=== PATIENT | female | born 2005 | race Hispanic/Latino ===

== ENCOUNTER 2025-03-04 22:43 | Emergency (ER) | payer SELFPAY ==
[~2025-03-04] VITALS: Ht 157.5 cm; Wt 51.7 kg
--- NOTE | 2025-03-04 22:58 | ERN ---
General Chief Complaint: Abdominal Pain Stated Complaint: C/O ABD PAIN WITH DIARRHEA Time Seen by MD: 22:49 History of Present Illness Initial Comments 19-year-old female history of anemia here for evaluation of abdominal pain and diarrhea. Patient states that she started having symptoms earlier today with a one episode of nonbilious nonbloody diarrhea. No vomiting. No fever no cough no shortness a breath no urinary symptoms. Patient has been transfused in the past x2. Last normal menstrual period was 2-3 weeks ago Allergies: Coded Allergies: No Known Allergies (Unverified Allergy, Unknown, 03/04/25) Past Medical History Past Medical History: No Pertinent History Past Surgical History: None Female( History) LMP: Feb 16, 2025 Gastrointestinal/Abdominal: (+) nausea, (+) abdominal pain Review of Systems: was completed, & the rest were negative. Physical Exam General Appearance: (+) no apparent distress Orientation: (+) alert, (+) oriented x 3 Head/Face Trauma: No Eye: bilateral eye normal inspection, bilateral eye PERRL, bilateral eye EOMI Ear, Nose, Throat: (+) hearing grossly normal, (+) normal ENT inspection, (+) moist mucous membraine Neck: (+) normal inspection Respiratory: (+) chest non-tender, (+) well ventilated Heart: (+) regular; (-) murmur Gastrointestinal: (+) soft Gastrointestinal Comment Tenderness to palpation of suprapubic region Results Laboratory and Microbiology Lab and Micro Result Laboratory Tests Test 03/04/25 22:48 03/04/25 22:59 Urine Color LIGHT-YELLOW (YELLOW) Urine Appearance CLEAR (CLEAR) Urine pH 5.5 (5.0-8.0) Urine Specific [place] 1.008 (1.001-1.031) Urine Protein NEGATIVE mg/dL (NEGATIVE) Urine Glucose (UA) NEGATIVE mg/dL (NEGATIVE) Urine Ketones 10 mg/dL (NEGATIVE) H Urine Occult Blood NEGATIVE (NEGATIVE) Urine Nitrate NEGATIVE (NEGATIVE) Urine Bilirubin NEGATIVE mg/dL (NEGATIVE) Urine Urobilinogen 0.2 mg/dL (0.2-1.0) Urine Leukocyte Esterase NEGATIVE Jade/uL White Blood Count 11.7 K/uL (4.8-10.8) H Red Blood Count 4.40 MIL/uL (4.00-5.50) Hemoglobin 12.8 g/dL (12.0-16.0) Hematocrit 38.3 % (36-48) Mean Corpuscular Volume 87.0 fL (80-100) Mean Corpuscular Hemoglobin 29.1 pg (27.0-33.0) Mean Corpuscular Hemoglobin Concent 33.4 g/dL (32.0-36.0) Red Cell Distribution Width 12.2 % (11.0-15.5) Platelet Count 234 K/uL (130-400) Mean Platelet Volume 9.6 fL (7.5-10.5) Immature Granulocyte % (Auto) 0.3 % (0-1) Neutrophils (%) (Auto) 81.2 % (40.0-77.0) H Lymphocytes (%) (Auto) 9.2 % (21.0-51.0) L Monocytes (%) (Auto) 8.4 % (3.0-13.0) Eosinophils (%) (Auto) 0.6 % (0.0-8.0) Basophils (%) (Auto) 0.3 % (0.0-5.0) Neutrophils # (Auto) 9.5 K/uL (1.8-7.7) H Lymphocytes # (Auto) 1.1 K/uL (1.0-4.8) Monocytes # (Auto) 1.0 K/uL (0.1-1.0) Eosinophils # (Auto) 0.07 K/uL (0.00-0.70) Basophils # (Auto) 0.03 K/uL (0.00-0.20) Absolute Immature Granulocyte (auto 0.03 K/uL (0-1) Nucleated Red Blood Cells 0.0 % (0.0-0.19) White Cell Morphology Comment See comments Sodium Level 136 mmol/L (136-145) Potassium Level 3.3 mmol/L (3.5-5.1) L Chloride Level 101 mmol/L (101-111) Carbon Dioxide Level 25 mmol/L (21-32) Blood Urea Nitrogen 7 mg/dL (7-18) Creatinine 0.5 mg/dL (0.5-1.0) Glomerular Filtration Rate Calc 138 mL/min (>90) Random Glucose 127 mg/dL (70-105) H Total Calcium 8.5 mg/dL (8.5-10.1) Lipase 28 U/L (16-77) Serum Test, Qualitative NEGATIVE (NEGATIVE) MDM 19-year-old female here for evaluation of gastroenteritis. We will get labs and reassess. Disposition pending results of labs and clinical improvement. ED Course Orders Procedure Category Date Status Time Basic Metabolic Panel LAB 03/04/25 Complete 22:49 Lipase LAB 03/04/25 Complete 22:49 Testing, LAB 03/04/25 Complete Serum Hcg 22:49 Urinalysis Profile LAB 03/04/25 Complete 22:49 Cbc With Differential LAB 03/04/25 Complete 22:49 Dicyclomine Hcl PHA 03/04/25 Complete (Bentyl 20mg Tab) 23:00 0.9%Nacl 1000ml (Ns PHA 03/04/25 In Process 1000ml) 23:00 Ondansetron 4mg Inj PHA 03/04/25 Complete (Zofran 4mg Inj) 23:00 Potassium Chloride PHA 03/05/25 Complete 20meq Er (K-Dur/Klor- 00:00 Current Medications Medications (Trade) Dose Ordered Sig/Evelyn Route PRN Reason Start Time Stop Time Status Last Admin Dose Admin Dicyclomine HCl (Bentyl 20mg Tab) 20 mg ONCE ONCE PO 03/04/25 23:00 03/04/25 23:13 DC 03/04/25 23:24 Ondansetron HCl (zoFRAN 4MG INJ) 4 mg ONCE ONCE IVP 03/04/25 23:00 03/04/25 23:13 DC 03/04/25 23:24 Potassium Chloride (K-Dur/Klor-Con 20meq) 40 meq ONCE ONCE PO 03/05/25 00:00 03/05/25 00:01 DC 03/05/25 00:16 Sodium Chloride 1,000 ml @ 0 mls/hr Q0M IV 03/04/25 23:00 04/03/25 22:59 03/04/25 23:25 Vital Signs Date Time Temp Pulse Resp B/P (MAP) Pulse Ox O2 Delivery O2 Flow Rate FiO2 03/04/25 23:16 98.8 80 17 125/66 100 Room Air* 0 21 03/04/25 22:46 98.4 93 20 123/87 100 Room Air 12:44 a.m.: Patient re-evaluated. States he feels much better. We will dispo home at this time with a prescription for Bentyl and Zofran. DX & DISP Disposition: Discharge Departure Impression: Primary Impression: Gastroenteritis Condition: Stable Scripts Dicyclomine HCl (Bentyl) 20 Mg Tab 1 TAB PO BID for irritable bowel symptoms for 15 Days, #30 TAB 0 Refills Prov: RASHEED RODRIGUEZ MD 03/05/25 Ondansetron (Ondansetron Odt) 4 Mg Tab.rapdis 1 TAB PO Q6HPRN PRN for nausea/vomiting for 4 Days, #16 TAB 0 Refills Prov: RASHEED RODRIGUEZ MD 03/05/25 RASHEED RODRIGUEZ MD Mar 04, 2025 22:58
[2025-03-04 23:07] LABS: IMMATURE GRANULOCYTE ABSOLUTE 0.03 K/uL (0-1); NUCLEATED RED BLOOD CELLS 0.0 % (0.0-0.19); PLATELET COUNT (AUTO) 234 K/uL (130-400); RED BLOOD CELL COUNT(AUTO) 4.40 MIL/uL (4.00-5.50); RED CELL DISTRIBUTION WIDTH 12.2 % (11.0-15.5); WHITE BLOOD COUNT (AUTO) 11.7 K/uL (4.8-10.8)
[2025-03-04 23:16] LABS: CREATININE 0.5 mg/dL (0.5-1.0); GLOMERULAR FILTR. RATE CALC 138.0 mL/min (>90); GLUCOSE,RANDOM 127.0 mg/dL (70-105); SODIUM SERUM 136.0 mmol/L (136-145); UREA NITROGEN, BLOOD 7.0 mg/dL (7-18)
[2025-03-04] MEDS: DICYCLOMINE HCL 20 MG TAB PO ONE (23:24)
[2025-03-04] MEDS: 0.9%NACL 1000ML 1,000 ML IV SCH (23:25)
[2025-03-05] MEDS: PoTASSium chloRIDE 20MEQ ER 20 MEQ ERTAB PO ONE (00:16)
[2025-03-05 00:27] LABS: APPEARANCE,URINE CLEAR (CLEAR); GLUCOSE, URINE (UA) NEGATIVE (NEGATIVE); LEUKOCYTE ESTERASE ,URINE NEGATIVE Leu/uL (NEGATIVE); NITRATE,URINE NEGATIVE (NEGATIVE); OCCULT BLOOD,URINE NEGATIVE (NEGATIVE)
[2025-03-05 00:28] LABS: ADD UA MICROSCOPIC NO
[2025-03-05] MEDS ORDERED: ONDA-243 PO (00:45)
[2025-03-05] MEDS ORDERED: DICY20TA2 PO (00:45)
[2025-03-05 00:50] VITALS: BP 111/60; PULSE 88; RESP 15; TEMP 98.7; O2SAT 100
== END 2025-03-05 01:05 | disposition home or self-care (01) ==
LOC: EDH 22:43
DX: K52.9 Noninfective gastroenteritis and colitis, unspecified (principal)
CPT/HCPCS: 99283; 96374; 80048; 84703; 83690; 85025; 81003; 36415; J7030; J2405